=== PATIENT | male | born 1960 | race Hispanic/Latino ===

== ENCOUNTER → 2022-11-10 | Day surgery (SDC) | payer BC, OTHER ==
[~2022-11-10] MED LIST: GLIPIZIDE ER5 MG PO; HYDROCHLOROTHIA25 MG PO; LACTATED RINGER'S 1,000 ML ONE; LIPITOR10 MG PO; METFORMIN HCL500 MG PO; PROPOFOL IV EMULSION 50 ML IV ONE; VASOTEC10 M1 PO
[2022-11-10 09:08] VITALS: TEMP 97.8
[2022-11-10 09:35] VITALS: BP 119/70; PULSE 60; RESP 15; O2SAT 99
== END | disposition home or self-care (01) ==
LOC: OR 06:23
PROVIDERS: ATTEND Internal Medicine Gastroenterology
DX: Z12.11 Encounter for screening for malignant neoplasm of colon (principal); K63.5 Polyp of colon; K64.8 Other hemorrhoids; K21.9 Gastro-esophageal reflux disease without esophagitis; I48.91 Unspecified atrial fibrillation; I10 Essential (primary) hypertension; E11.9 Type 2 diabetes mellitus without complications; Z72.0 Tobacco use; Z01.810 Encounter for preprocedural cardiovascular examination; Z79.84 Long term (current) use of oral hypoglycemic drugs; Z79.899 Other long term (current) drug therapy; Z95.0 Presence of cardiac pacemaker
CPT/HCPCS: 36415; 45380; 82948; 93005; J2704; J7121; 45378; 45385